=== PATIENT | male | born 1995 | race Two or more races ===

== ENCOUNTER 2016-08-06 17:29 | Emergency (ER) | payer SELFPAY ==
[2016-08-06] MEDS ORDERED: fentaNYL 100 MCG/2 ML INJ ONE (17:43)
[2016-08-06] MEDS ORDERED: ONDANSETRON 4 MG/2 ML VIAL ONE (17:44)
[2016-08-06] MEDS ORDERED: PROPOFOL/EMULSION 1,000 MG/100 ML BOTTLE IV ONE (17:48)
[2016-08-06] MEDS ORDERED: ONDANSETRON 4 MG/2 ML VIAL IVP ONE (18:03)
[2016-08-06] MEDS ORDERED: PROPOFOL 200 MG/20 ML VIAL IVP ONE (18:03)
[2016-08-06] MEDS ORDERED: fentaNYL 100 MCG/2 ML INJ IVP ONE (18:03)
--- NOTE | 2016-08-06 18:04 | EDPHY ---
H & P Stated Complaint: RLE Injury Time Seen by Provider: 08/06/16 17:45 HPI/ROS: CHIEF COMPLAINT: right ankle pain HISTORY OF PRESENT ILLNESS: 21-year-old male brought in by ambulance with a right ankle deformity. Patient was playing basketball, jumped and landed on his right ankle. Patient reports a previous ankle fracture. He denies numbness or tingling to this foot, denies head strike, no other complaints. REVIEW OF SYSTEMS: A comprehensive 10 point review of systems is otherwise negative aside from elements mentioned in the history of present illness. Source: Patient Exam Limitations: No limitations - Personal History Current Tetanus Diphtheria and Acellular Pertussis (TDAP): Yes - Medical/Surgical History Hx Asthma: No Hx Chronic Respiratory Disease: No Hx Diabetes: No Hx Cardiac Disease: No Hx Renal Disease: No Hx Cirrhosis: No Hx Alcoholism: No Hx HIV/AIDS: No Hx Splenectomy or Spleen Trauma: No Other PMH: Right ankle fx - Social History Smoking Status: Never smoked - Physical Exam Exam: Physical Exam Gen: Alert and Oriented, NAD HEENT: PERRL, moist mucous membranes NECK: no meningismus CV: regular rate and regular rhythm PULM: CTAB, no wheezes ABDOMEN: soft, non tender to palpation, BS present BACK: No CVA tenderness NEURO: Neurologically grossly intact EXTREMITIES: Right ankle with obvious deformity with foot inverted. 2+ dorsalis pedis pulse, cap refill less than 2 seconds, sensation intact to light touch SKIN: no rash or break in skin on exposed skin PSYCH: answers questions appropriately. Constitutional: Initial Vital Signs Temperature (C) 36.8 C 08/06/16 17:36 Heart Rate 74 08/06/16 17:36 Respiratory Rate 18 08/06/16 17:36 Blood Pressure 125/68 H 08/06/16 17:36 O2 Sat (%) 98 08/06/16 17:36 O2 Delivery Mode [Post Room Air Procedure 4th] O2 Delivery Mode [Post Room Air Procedure 3rd] O2 Delivery Mode [Post Non-Rebreather Mask Procedure 2nd] O2 Delivery Mode [Post Non-Rebreather Mask Procedure 1st] O2 Delivery Mode [Procedural Non-Rebreather Mask 1st] O2 Delivery Mode [.Immediate Non-Rebreather Mask Pre-Procedure] O2 Delivery Mode Room Air O2 (L/minute) [Post Procedure 15 2nd] O2 (L/minute) [Post Procedure 15 1st] O2 (L/minute) [Procedural 1st] 15 O2 (L/minute) [.Immediate Pre- 15 Procedure] O2 (L/minute) 15 Allergies/Adverse Reactions: No Known Allergies Allergy (Unverified 08/06/16 17:35) Home Medications: Medication Instructions Recorded Hydrocodone/APAP 5/325 [Orcas 1 tab PO Q4H PRN #7 tab 08/06/16 5/325] Medical Decision Making - Diagnostics Imaging: Imaging Impressions Ankle X-Ray 08/06/16 17:40 Impression: 1. Fibular collateral ligament avulsion. 2. Equivocal talar neck avulsion. Post reduction right ankle x-ray independently reviewed by me Procedures: Procedure: Dislocation reduction. Indication: Dislocation of the right ankle. Risks, benefits, alternatives discussed with the patient. Consent was obtained. The right ankle was reduced with manual traction and manipulation without complications. The patient has a normal neurovascular exam distal to the injury post reduction. Patient tolerated the procedure well and is significantly more comfortable. Post reduction x-ray demonstrates reduction of the joint to the anatomic position. The procedure was performed by myself. Procedural sedation performed by my supervising physician Dr. Abebe. A posterior and sugar-tong right lower leg Ortho Glass splint was applied. After application of the splint, I returned and re-examined the patient. The splint was adequately immobilizing the joint. The patients circulation and sensation were intact distal to the splint. ED Course/Re-evaluation: Patient arrives via EMS with IV in place, he was given 100 mcg of fentanyl an ambulance. On arrival to the emergency department vacation was given another 50 mcg of fentanyl. The patient is transferred into room 2, placed on the tafe teacher, he is hyperventilated and prepared for conscious sedation performed by by supervising physician for ankle reduction. Patient tolerated the procedure well, x-ray shows good reduction. Repeat exam with soft compartments, 2+ pedal pulses, sensation intact to light touch. Patient has [employer] insurance, he is to call them 1st thing in the morning to arrange Ortho follow-up. Patient is given strict return precautions for any neurovascular compromise. - Data Points Medications Given: Discontinued Medications Fentanyl (Sublimaze) 50 mcg IVP EDNOW ONE Stop: 08/06/16 18:04 Last Admin: 08/06/16 18:06 Dose: 50 mcg Ondansetron HCl (Zofran) 4 mg IVP EDNOW ONE Stop: 08/06/16 18:04 Last Admin: 08/06/16 18:06 Dose: 4 mg Propofol (Diprivan) 110 mg IVP EDNOW ONE Stop: 08/06/16 18:04 Last Admin: 08/06/16 18:06 Dose: 110 mg Departure - Departure Disposition: Home, Routine, Self-Care Clinical Impression: Dislocation of right ankle joint, initial encounter Qualifiers: Encounter type: initial encounter Qualified Code(s): S93.04XA - Dislocation of right ankle joint, initial encounter Condition: Good Instructions: Ankle Dislocation (ED) Additional Instructions: Rest, ice, elevate, take 600 mg of ibuprofen every 8 hours with food for 3-5 days, take Orcas for severe pain. Keep your splint on, clean and dry, use crutches, do not put any weight on your foot until you follow up with orthopedist. Call [facility] 1st thing in the morning to arrange to see an orthopedist in the next 3-5 days. Return to the emergency department for any pain that is not controlled, numbness or tingling in your foot, any other questions or concerns. Referrals: [facility] [Provider Group] - As per Instructions Prescriptions: Hydrocodone/APAP 5/325 [Orcas 5/325] 1 tab PO Q4H PRN #7 tab PRN Reason: Pain, Moderate
[2016-08-06 18:40] VITALS: BP 125/69; PULSE 74; RESP 18; TEMP 98.1; O2SAT 96
== END 2016-08-06 18:40 | disposition home or self-care (01) ==
PROC: 2W3LX2Z Immobilization of Right Lower Extremity using Cast (ICD-10-PCS; principal; 2016-08-06)
DX: S93.04XA Dislocation of right ankle joint, initial encounter (principal); X58.XXXA Exposure to other specified factors, initial encounter; Y99.8 Other external cause status; Y93.67 Activity, basketball
CPT/HCPCS: 96374; J2405; J2704; J3010